=== PATIENT | male | born 1980 | race Caucasian/White ===

== ENCOUNTER 2018-09-04 21:04 | Emergency (ER) | payer BC ==
[2018-09-04 21:21] VITALS: BP 125/84; PULSE 85; TEMP 98.4; BMI 34.9
[2018-09-04 22:32] LABS: BASO % 0.7 % (0-2.0); EOS % 1.8 % (0-4.5); HEMATOCRIT 52.6 % (35.4-49); HEMOGLOBIN 17.1 GM/dl (11.7-16.9); LYMPH % 21.6 % (8-40); MCH 32.6 pg (25.7-33.7); MCHC 32.5 g/dl (32.0-35.9); MEAN CELL VOLUME 100.4 fl (80-96); MEAN PLT VOLUME 9.8 fl (7.5-11.1); MONO % 6.4 % (3.8-10.2); NEUT % 69.5 % (42.8-82.8); PLATELET COUNT 185 K/MM3 (134-434); RBC 5.24 M/mm3 (4.00-5.60); RDW 12.1 % (11.9-15.9); WHITE BLOOD COUNT 9.3 K/mm3 (4.0-10.8)
[2018-09-04 22:41] LABS: ALBUMIN 4.1 g/dl (3.4-5.0); BILIRUBIN,TOTAL 0.9 mg/dl (0.2-1); CALCIUM 8.6 mg/dl (8.5-10); POTASSIUM 4.2 mmol/L (3.5-5.1)
[2018-09-04] MEDS ORDERED: FAMOTIDINE 20 MG TABLET PO ONE (23:24)
[2018-09-04] MEDS ORDERED: FAMOTIDINE 20 MG TABLET ONE (23:29)
--- NOTE | 2018-09-05 01:37 | PDOC ---
Documentation entered by Michelle Virk SCRIBE, acting as scribe for Katie James MD. Katie James MD: This documentation has been prepared by the Moose barraza Mackenzie, SCRIBE, under my direction and personally reviewed by me in its entirety. I confirm that the documentation accurately reflects all work , treatment, procedures, and medical decision making performed by me. History of Present Illness - General Chief Complaint: Chest Pain Stated Complaint: CHEST PAIN Time Seen by Provider: 09/04/18 21:10 History Source: Patient - History of Present Illness Initial Comments: The patient is a 38 year old male, with no significant PMH who presents to the emergency department with chest pain. Patient states that last night he felt a pain in his left forearm that persisted for about 5 minutes before subsiding, and then this morning he felt a pain in his left lower chest that also lasted about 5 minutes before subsiding. He was prompted to come in tonight because about an hour and a half prior to arrival he felt a sharp pain localized at the center of his chest that has since been constant, not worsened by forced inhalation, position, or movement. Patient notes about 1 year ago he received an echocardiogram at work and was told he had 55% ejection fraction, an enlarged septum wall, and a heart murmur, the patient declined to follow up with a clerical car checker after this screening. The patient also notes being told that previous EKGs were abnormal in the past. The patient denies shortness of breath, headache and dizziness. Denies fever, chills, nausea, vomiting, diarrhea and constipation. Denies dysuria, frequency, urgency and hematuria. Allergies: NKA Social history: Denies tobacco use PCP: Dr. Turpin 0 09/04/18 22:50 Past History - Past Medical History Allergies/Adverse Reactions: Allergies Allergy/AdvReac Type Severity Reaction Status Date / Time No Known Allergies Allergy Unverified 09/04/18 21:07 Home Medications: Ambulatory Orders Testosterone 09/04/18 COPD: No Other medical history: HYPERHYDROSIS, MIRADRY PROCEDURE TODAY - Suicide/Smoking/Psychosocial Hx Smoking History: Never smoked Hx Alcohol Use: Yes (SOCIAL) Drug/Substance Use Hx: No Review of Systems - Review of Systems Able to Perform ROS?: Yes Comments:: GENERAL/CONSTITUTIONAL: No fever or chills. No weakness. HEAD, EYES, EARS, NOSE AND THROAT: No change in vision. No ear pain or discharge. No sore throat. CARDIOVASCULAR: (+)Chest pain. No shortness of breath. RESPIRATORY: No cough, wheezing, or hemoptysis. GASTROINTESTINAL: No nausea, vomiting, diarrhea or constipation. GENITOURINARY: No dysuria, frequency, or change in urination. MUSCULOSKELETAL: No joint or muscle swelling or pain. No neck or back pain. SKIN: No rash NEUROLOGIC: No headache, vertigo, loss of consciousness, or change in strength/ sensation. ENDOCRINE: No increased thirst. No abnormal weight change. HEMATOLOGIC/LYMPHATIC: No anemia, easy bleeding, or history of blood clots. ALLERGIC/IMMUNOLOGIC: No hives or skin allergy. 09/04/18 22:18 *Physical Exam - Vital Signs Last Vital Signs Temp Pulse Resp BP Pulse Ox 98.4 F 85 16 125/84 98 09/04/18 21:07 09/04/18 21:07 09/04/18 21:07 09/04/18 21:07 09/04/18 21:07 - Physical Exam Comments: GENERAL: Awake, alert, and fully oriented, in no acute distress HEAD: No signs of trauma EYES: PERRLA, EOMI, sclera anicteric, conjunctiva clear ENT: Auricles normal inspection, hearing grossly normal, nares patent, oropharynx clear without exudates. Moist mucosa NECK: Normal ROM, supple, no lymphadenopathy, JVD, or masses LUNGS: Breath sounds equal, clear to auscultation bilaterally. No wheezes, and no crackles HEART: Regular rate and rhythm, normal S1 and S2, no murmurs, rubs or gallops ABDOMEN: Soft, nontender, normoactive bowel sounds. No guarding, no rebound. No masses EXTREMITIES: No recent immobilizations. No signs of DVT. Normal range of motion , no edema. No clubbing or cyanosis. No cords, erythema, or tenderness NEUROLOGICAL: Cranial nerves II through XII grossly intact. Normal speech, normal gait SKIN: Warm, Dry, normal turgor, no rashes or lesions noted. 09/04/18 22:18 Heart Score/ECG Review - History History: Slightly suspicious - Electrocardiogram EKG: Normal - Age Age: </= 45 - Risk Factors Based on the list above the patient has:: No risk factors known - Troponin Troponin: </= normal limit - Score Heart Score - Total: 0 ED Treatment Course - LABORATORY CBC & Chemistry Diagram: 09/04/18 22:10 09/04/18 22:10 - ADDITIONAL ORDERS Additional order review: Laboratory Results 09/04/18 22:10 Sodium 136 Potassium 4.2 Chloride 99 Carbon Dioxide 30 Anion Gap 7 L BUN 17.0 Creatinine 1.0 Est GFR (CKD-EPI)AfAm 111.73 Est GFR (CKD-EPI)NonAf 96.40 Random Glucose 98 Calcium 8.6 Total Bilirubin 0.9 AST 29 ALT 21 Alkaline Phosphatase 44 L Creatine Kinase 495 H Total Protein 7.0 Albumin 4.1 09/04/18 22:10 RBC 5.24 MCV 100.4 H MCHC 32.5 RDW 12.1 MPV 9.8 Neutrophils % 69.5 Lymphocytes % 21.6 Monocytes % 6.4 Eosinophils % 1.8 Basophils % 0.7 Medical Decision Making - Medical Decision Making This otherwise healthy 38-year-old man presents with 1 day history of intermittent left arm/chest pain. Earlier today he had very brief (maximum under 2 minutes) episodes of left arm and left lower chest pain. A few hours prior to presentation, he developed mild substernal chest pressure without associated symptoms. He denies any dietary changes/unusual strenuous activity/ fever or infectious symptoms. He did not take any medication to relieve the pain this evening. Patient has no risk factors for coronary artery disease or pulmonary embolus. Exam is benign. Twelve-lead electrocardiogram is performed: Normal sinus rhythm at 80 beats per minute. There is J-point elevation in V 2 and V3 but no abnormal waveforms; axis and intervals are also normal. No evidence of acute ST or T-wave abnormalities. No evidence of cardiac arrhythmia. Although patient has no risk factors for coronary artery disease, CBC and chemistry profile evaluated as well as troponin level. Other than elevated hemoglobin/hematocrit and MCV of 100, there are no abnormalities. Extremely unlikely that pain is cardiac related; he should follow-up with general medical doctor and with cardiology (because of apparent abnormalities in echocardiogram performed in cardiovascular screening at work 18 months ago). These follow-up appointment should occur within the next week to 10 days. He should return to the emergency room if he has persistent severe pain or develops shortness of breath/palpitations/nausea *DC/Admit/Observation/Transfer Diagnosis at time of Disposition: Atypical chest pain - Discharge Dispostion Disposition: HOME Condition at time of disposition: Stable - Referrals Referrals: Nawaf Turpin [Primary Care Provider] - Ang Betts MD [Staff Physician] - 1 week - Patient Instructions Printed Discharge Instructions: DI for Atypical Chest Pain Additional Instructions: avoid strenuous upper body exercise for the next week consider Pepcid/Zantac as needed Tylenol/ Motrin(with food) as needed followup with Cardiology(Dr Betts group) as discussed return to ER if you have persistent chest pain, shortness of breath, nausea - Post Discharge Activity
--- NOTE | 2018-09-05 08:54 | EKG ---
Test Reason : Blood Pressure : / mmHG Vent. Rate : 080 BPM Atrial Rate : 080 BPM P-R Int : 140 ms QRS Dur : 112 ms QT Int : 352 ms P-R-T Axes : 057 072 051 degrees QTc Int : 405 ms NORMAL SINUS RHYTHM ST ELEVATION, CONSIDER EARLY REPOLARIZATION, PERICARDITIS, OR INJURY Confirmed by EVANGELIST OCONNELL MD ([id number]) on 09/05/2018 8:54:15 AM Referred By: GIOVANNI TORRES Confirmed By:EVANGELIST OCONNELL MD
== END 2018-09-04 23:40 | disposition home or self-care (01) ==
LOC: FER 21:04
DX: R07.89 Other chest pain (principal)
CPT/HCPCS: 36415; 80053; 82550; 82553; 84484; 85025; 93005; 99282-25

== ENCOUNTER 2020-04-01 13:05 | Emergency (ER) | payer BC ==
[2020-04-01 13:21] VITALS: BP 128/83; PULSE 80; TEMP 98.8; BMI 26.2
[2020-04-01] MEDS ORDERED: ACETAMINOPHEN 500 MG TABLET (FP) PO ONE (13:26)
[2020-04-01] MEDS ORDERED: ACETAMINOPHEN 500 MG TABLET (FP) ONE (13:33)
== END 2020-04-01 14:15 | disposition home or self-care (01) ==
LOC: FER 13:05
DX: S60.932A Unspecified superficial injury of left thumb, initial encounter (principal); S69.82XA Other specified injuries of left wrist, hand and finger(s), initial encounter
CPT/HCPCS: 73110-TC-LT-FY; 73130-TC-LT-FY; 99284-25

== ENCOUNTER 2021-08-22 20:18 | Emergency (ER) | payer BC, OTHER ==
[2021-08-22 20:28] VITALS: BP 141/97; PULSE 90; TEMP 98.6; BMI 25.7
== END 2021-08-22 21:08 | disposition home or self-care (01) ==
LOC: FER 20:18
DX: S86.912A Strain of unspecified muscle(s) and tendon(s) at lower leg level, left leg, initial encounter (principal); X50.0XXA Overexertion from strenuous movement or load, initial encounter; Y35.811A Legal intervention involving manhandling, law enforcement official injured, initial encounter
CPT/HCPCS: 99281-25